=== PATIENT | male | born 1990 | race Caucasian/White ===

== ENCOUNTER 2021-03-18 | Emergency (ER) | payer OTHER ==
[2021-03-18 00:13] VITALS: BP 157/97; PULSE 88; RESP 18; TEMP 98.5
[2021-03-18] MEDS ORDERED: ACETAMINOPHEN TAB 500 MG TAB PO STA (00:41)
[2021-03-18] MEDS ORDERED: AMOXIC-POT CLAV 875-125MG 1 EACH TAB PO STA (00:41)
--- NOTE | 2021-03-18 00:43 | ED ---
General Adult HPI - General Chief complaint: ENT Stated complaint: Ear Infection Time Seen by Provider: 03/18/21 00:28 Source: patient, RN notes reviewed Mode of arrival: ambulatory Limitations: no limitations - History of Present Illness Initial comments: 31-year-old male presents to the emergency room for chief, and of right ear pain. Patient reports that he has had right ear pain since about 4 AM this morning. States it is sharp and painful. Patient states he recently was treated for an ear infection about 4 weeks ago. States had improved however it is now worsening again. Denies any fevers. Denies headache. Denies pain behind the ear.Patient has no other complaints at this time including shortness of breath, chest pain, abdominal pain, nausea or vomiting, headache, or visual changes. - Related Data Previous Rx's Medication Instructions Recorded Amoxicillin/Potassium Clav 1 tab PO Q12HR #20 tab 03/18/21 [Augmentin 875-125 Tablet] Fluticasone Nasal Emblem [Flonase 1 spray EA NOSTRIL DAILY 7 Days 03/18/21 Nasal Emblem] #16 gm Allergies Allergy/AdvReac Type Severity Reaction Status Date / Time No Known Allergies Allergy Verified 03/18/21 00:12 Review of Systems ROS Statement: Those systems with pertinent positive or pertinent negative responses have been documented in the HPI. ROS Other: All systems not noted in ROS Statement are negative. Past Medical History Past Medical History: Diabetes Mellitus History of Any Multi-Drug Resistant Organisms: None Reported Past Surgical History: No Surgical Hx Reported Past Psychological History: No Psychological Hx Reported Smoking Status: Never smoker Past Alcohol Use History: Daily Past Drug Use History: Marijuana General Exam Limitations: no limitations General appearance: alert, in no apparent distress Head exam: Present: atraumatic Eye exam: Present: normal appearance, PERRL, EOMI. Absent: scleral icterus, co njunctival injection ENT exam: Present: normal exam, normal oropharynx, mucous membranes moist, normal external ear exam. Absent: TM's normal bilaterally (Right tympanic memb ashley is erythematous. Left tympanic membranes normal limits. No tenderness to palpation or percussion of the mastoid process.) Neck exam: Present: normal inspection, full ROM. Absent: tenderness Respiratory exam: Present: normal lung sounds bilaterally. Absent: respiratory distress, wheezes Cardiovascular Exam: Present: regular rate, normal rhythm, normal heart sounds Course Vital Signs 03/18/21 00:09 Temperature 98.5 F Pulse Rate 88 Respiratory 18 Rate Blood Pressure 157/97 O2 Sat by Pulse 98 Oximetry Medical Decision Making - Medical Decision Making Patient has signs of otitis media. We will start him on Augmentin as he has had amoxicillin in the previous month for similar issue. Given this is his second ear infection in a month he will be referred to ENT. He'll return for any worsening symptoms. Disposition Clinical Impression: Otitis media Disposition: HOME SELF-CARE Condition: Good Instructions (If sedation given, give patient instructions): Earache (ED) Additional Instructions: Please take motrin and tylenol for pain. Take antibiotic as directed. Follow- up with ENT. Return to the emergency room for any worsening symptoms. Prescriptions: Amoxicillin/Potassium Clav [Augmentin 875-125 Tablet] 1 tab PO Q12HR #20 tab Fluticasone Nasal Emblem [Flonase Nasal Emblem] 1 spray EA NOSTRIL DAILY 7 Days #16 gm Is patient prescribed a controlled substance at d/c from ED?: No Referrals: Marco Antonio Bunn MD [Primary Care Provider] - 1-2 days Roger Carias MD [STAFF PHYSICIAN] - 1-2 days Time of Disposition: 00:42
== END 2021-03-18 01:17 | disposition home or self-care (01) ==
LOC: EC
DX: H66.91 Otitis media, unspecified, right ear (principal); E11.9 Type 2 diabetes mellitus without complications; F12.90 Cannabis use, unspecified, uncomplicated
CPT/HCPCS: 99282